=== PATIENT | male | born 1995 | race African-American/Black ===

== ENCOUNTER 2024-09-14 09:02 | Emergency (ER) | payer SELFPAY ==
[2024-09-14 09:08] VITALS: BP 147/84; PULSE 69; RESP 18; TEMP 36.9; O2SAT 97
--- NOTE | 2024-09-14 09:15 | DI.RAD_ITS ---
Exam(s) XR FOREARM RT EXAM: XR FOREARM RT CLINICAL HISTORY: Punched window, laceration. TECHNIQUE: 2D digital imaging was performed. COMPARISON: No exams were available for comparison FINDINGS: Two views There is a soft tissue laceration noted the mid forearm level... There is some radiopaque density pr ojected over the mid volar lateral aspect with multiple small densities probably foreign bodies and s mall amount of gas in the soft tissues at this level. There are no fractures. Bone density normal. IMPRESSION: Forearm level laceration. Radiopaque foreign bodies noted. DATA REPOSITORY: RADIATION DOSE DELIVERED:
--- NOTE | 2024-09-14 09:15 | DI.RAD_ITS ---
Exam(s) XR HAND RT COMPLETE EXAM: XR HAND RT COMPLETE CLINICAL HISTORY: punched window, laceration. TECHNIQUE: 2D digital imaging was performed. COMPARISON: No exams were available for comparison FINDINGS: 3 views No evidence of fracture or dislocation nor incidental osseous lesions. Bone density is normal. There is a small 1-2 mm density in the soft tissues between the thumb and index finger. IMPRESSION: Small calcification versus foreign body in the soft tissues as described above. Correlation with cli nical findings recommended. No significant osseous findings in the hand. DATA REPOSITORY: RADIATION DOSE DELIVERED:
--- NOTE | 2024-09-14 09:19 | ED.GENADUL_ITS ---
Discharge Plan Disposition Patient Disposition: Home Condition: Stable Discharge Details Chief Complaint: Laceration Clinical Impression: Laceration of arm, right, multiple sites, Foreign body in soft tissue ED Provider: Rayshawn Campbell Home Meds and New Rx's Prescriptions: No Action No Known Home Meds Discharge Instructions Instructions: Foreign Body in Skin, Wound Care ED Additional Instructions: Tetanus status has been updated. Wounds were cleaned and dressed. Please change dressing once or twice daily as needed. We discussed wound closure of 2 of the lacerations which has been declined, I do believe this to be reasonable. We also discussed your x-rays, no bony abnormality but there did appear to be some foreign bodies in your forearm. We discussed exploring and attempting to remove these but this has been declined. This too is reasonable. We discussed signs and symptoms of infection as well as potential future need to see a general surgeon for foreign body removal. I did have our care management team come chat with you to see if they have any additional options for your transportation issues. I wish you the best of luck. Please watch for new or worsening symptoms and return immediately to our ER or the nearest ER on your travels. HPI General Mode of arrival: ambulatory . Date/Time Provider Initiated Documentation: 09/14/24 09:11 . Limitations to Documentation: no limitations . Information obtained by: patient and police . History of Present Illness 28 year old M presents to the emergency department with the chief complaint of Right arm injury, described as mild, with intensity rated at 1. Quality is described as aching, and is localized to the right and upper extremity. Patient reports no radiation. Patient started experiencing this minute(s) (30) and it has been constant. No relieving factors improve symptom(s), No exacerbating factors reported . Patient notes no other symptoms.. Patient did receive the following treatments prior to arrival, none Related Data Home Medications ?Medication ?Instructions ?Recorded ?Confirmed Unknown [No Known Home Meds] 09/14/24 09/14/24 Allergies Allergy/AdvReac Type Severity Reaction Status Date / Time No Known Allergies Allergy Verified 09/14/24 09:35 General Stated Complaint: Laceration MAXINE: 4 Review of Systems Constitutional Constitutional: Denies fever(s) and Denies weakness Musculoskeletal Musculoskeletal: Denies arthralgias, Denies numbness, Denies stiffness and Denies tingling Integumentary/Breasts Skin/Breast: Denies rash Neurologic Neurologic: Denies numbness, Denies tingling and Denies weakness Exam Const General: cooperative, healthy appearing, comfortable and no acute distress Orientation: alert, awake and oriented x3 HENMT Head: normal to inspection, normocephalic and atraumatic Mouth: moist mucous membranes Throat: posterior oropharynx normal Eyes Conjunctivae: conjunctivae normal Neck Neck: normal visual inspection, trachea midline and supple Resp Effort & Inspection: normal respiratory effort and able to speak in complete sentences Cardio Rate: regular rate Rhythm: regular rhythm Skin General skin exam: no rashes or lesions noted Neuro General: patient alert, patient awake, moves all extremities and no focal motor deficits Cognition: normal cognition Speech: speech normal Gait: normal gait Motor: muscle tone normal throughout Sensory Exam: no sensory deficits noted Extrem General: full ROM and capillary refill normal Other: Multiple superficial abrasions about the hand and forearm. There is a 1 cm well-approximated crescent shaped laceration about the extensor aspect of the index finger. There is also a 1 cm superficial laceration about the forearm. Bleeding is controlled throughout. Unable to appreciate any palpable foreign body. Elbow is unremarkable. Demonstrates full elbow wrist, and hand movements. Demonstrates full flexion, extension, abduction, adduction of all digits. Sensation intact throughout. Normal radial pulse and capillary refill. Psych Appearance: grossly normal Mental Status: mental status grossly normal Course Vital Signs Vital signs: Vital Signs Temperature 36.9 C 09/14/24 09:08 Pulse 69 09/14/24 09:08 Respiratory Rate 18 09/14/24 09:08 Blood Pressure 147/84 H 09/14/24 09:08 Pulse Oximetry 97 09/14/24 09:08 Temperature 36.9 C 09/14/24 09:08 Pulse 69 09/14/24 09:08 Respiratory Rate 18 09/14/24 09:08 Blood Pressure 147/84 H 09/14/24 09:08 Pulse Oximetry 97 09/14/24 09:08 Medical Decision Making This is a 28-year-old gentleman who is right-hand dominant presenting for right hand and forearm lacerations. He is from [facility], a program in that area provided him with transportation to get to [facility] for a treatment program. He completed the program and now has no way to return to [facility]. He is rightfully so frustrated. He sustained an injury to his hand after punching a window. Denies numbness, tingling, weakness. Neuro, vascular, tendon intact. Bleeding well-controlled. There are 2 separate lacerations that could benefit from a single stitch although are well- approximated and should heal just fine from secondary intent. Patient declines any suturing, I do believe this to be reasonable. He does understand the increased chance for scarring. Right hand x-ray ordered and reviewed, small calcification in the soft tissue between the thumb and index finger, no correlating laceration in that area. No acute bony abnormality. Right forearm x-ray ordered and reviewed, soft tissue lacerations noted, radiopaque density projected over the mid volar lateral aspects with multiple small densities probable foreign bodies. The wounds were thoroughly cleaned. Discussed x-rays with patient. He does understand that he likely has small superficial foreign bodies, likely glass from the recent injury. He declines any exploration and attempt to remove these foreign bodies. We discussed we could do this with local anesthesia. He again declines. Patient understands that he needs to monitor for infection. Also this area may become bothersome in the future requiring evaluation by a general surgeon for potential removal of foreign body. Patient is of sound mind and can make these decisions. He is currently more concerned about transportation back to [place]. Able to find him a free ride to [place] however it would then be $45 to get from [place] to [place] without a clear plan from [place]. Patient is requesting to be discharged medically. I will have our care management team come talk with the patient to see if they have any other solution for his transportation issues. Standard discharge and return precautions were provided. Patient understands, is agreeable to this plan, and has no additional questions or concerns upon discharge. This documentation was generated using [employer] system, please disregard any oddities of phrase or misspellings. Quality:SDOH Health Related Social Needs: No Data to Display PFSH All Active Problems (Updated 09/14/24 @ 10:17 by GONSALO Arevalo) Foreign body in soft tissue (Acute) Laceration of arm, right, multiple sites (Acute) Social History Smoking risk assessment performed?: No
[2024-09-14] MEDS: Diph,Pertuss(Acell),Tet Vac/Pf 0.5 ML SYR IM (09:29)
[2024-09-14 10:24] VITALS: BP 150/89; PULSE 69; RESP 20; O2SAT 100
--- NOTE | 2024-09-14 10:35 | NUR.NOTE ---
Pt was offered Care Management to meet/consult with pt. Care management in meeting, would be 30 minutes. Pt refused and [facility] and pt was going over to [facility] for social support/services. Provider Rayshawn Campbell notified. Pt discharged and left with [facility] (not in custody), who were trying to connect him with services. Chris Cartwright, RN Nursing Note:
== END 2024-09-14 10:38 | disposition home or self-care (01) ==
PROVIDERS: Emergency Provider Physician Assistant
DX: M79.5 Residual foreign body in soft tissue; Z23 Encounter for immunization; S51.812A Laceration without foreign body of left forearm, initial encounter; W22.8XXA Striking against or struck by other objects, initial encounter; S60.512A Abrasion of left hand, initial encounter
CPT/HCPCS: 99283; 99284; 90471; 90715; 73090; 73130